=== PATIENT | male | born 1990 | race African-American/Black ===

== ENCOUNTER 2016-07-18 14:18 | Emergency (ER) | payer OTHER ==
[2016-07-18 14:47] VITALS: BP 136/91; PULSE 84; TEMP 98; BMI 43.0
--- NOTE | 2016-07-18 16:32 | PDOC ---
History of Present Illness - General Chief Complaint: Vaginal Sxs Stated Complaint: SICK Time Seen by Provider: 07/18/16 16:31 History Source: Patient Exam Limitations: No Limitations - History of Present Illness Initial Comments: 07/18/16 17:10 My chief complaint: Vaginal discharge with itchiness History of present illness: Patient is a 26-year-old transgender individual with history of fwy-gkhcagx-ylsnbdati diabetes here today complaining of a yellowish to grayish discharge times one month with vaginal itchiness. Patient reports that he is sexually active is however would like to be treated prophylactically for sexually transmitted diseases. Patient denies any vaginal lesions. Patient has not taken Glucophage for approximately 4 months has not seen her turbo operator. Denies any urinary symptoms no dysuria, hematuria, frequency or urgency. Denies any abdominal or back pain. 07/18/16 17:19 Timing/Duration: getting worse Severity: mild Associated Symptoms: reports: other (vaginal discharge grayish yellowish ) Past History - Past Medical History Allergies/Adverse Reactions: Allergies Allergy/AdvReac Type Severity Reaction Status Date / Time No Known Allergies Allergy Verified 07/18/16 14:47 Home Medications: Ambulatory Orders Testosterone Cypionate [Testone Cik] 200 mg IM ASDIR 07/18/16 Diabetes: Yes - Psycho/Social/Smoking Cessation Hx Anxiety: No Suicidal Ideation: No Smoking History: Never smoked Have you smoked in the past 12 months: No Information on smoking cessation initiated: No Hx Alcohol Use: No Drug/Substance Use Hx: No Substance Use Type: None Review of Systems - Review of Systems Able to Perform ROS?: Yes Constitutional: No: Symptoms Reported HEENTM: No: Symptoms Reported Respiratory: No: Symptoms reported Cardiac (ROS): No: Symptoms Reported ABD/GI: No: Symptoms Reported : Yes: Discharge (yellowish hurley vaginal discharge for one month ), Other ( does not have a penis or testicles). No: Frequency, Flank Pain, Hematuria, Incontinence, Pain, Urgency *Physical Exam - Vital Signs Last Vital Signs Temp Pulse Resp BP Pulse Ox 98.0 F 84 18 136/91 100 07/18/16 14:43 07/18/16 14:43 07/18/16 14:43 07/18/16 14:43 07/18/16 14:43 - Physical Exam General Appearance: Yes: Appropriately Dressed Respiratory/Chest: positive: Lungs Clear, Normal Breath Sounds. negative: Chest Tender, Respiratory Distress Cardiovascular: positive: Regular Rhythm, Regular Rate, S1, S2 Gastrointestinal/Abdominal: positive: Normal Bowel Sounds, Soft. negative: Tender, Organomegaly, Distended, Guarding, Rebound, Tenderness, Hepatomegaly, Spleenomegaly Male Genitalia: positive: other (vulva no lesions or edema, cervix slightly friable cervical os closed, normal [place] b/l, no CMT, discharge grayish yellow, no adnexa tenderness, bartholin and scalene gland no edema or tendereness). negative: normal genitalia, normal prostate, testicular tenderness, testicular mass, epididymus tender, inguinal hernia, hernia, CVAT, hematuria Integumentary: positive: Normal Color Neurologic: positive: Alert, Responsive ED Treatment Course - LABORATORY CBC & Chemistry Diagram: 07/18/16 17:15 07/18/16 17:15 Medical Decision Making - Medical Decision Making 07/18/16 17:19 Patient is a 26-year-old transgender individual with history of non-insulin- dependent diabetes here today complaining of a yellowish to grayish discharge times one month with vaginal itchiness. Patient reports that he is sexually active is however would like to be treated prophylactically for sexually transmitted diseases. Patient denies any vaginal lesions. Patient has not taken Glucophage for approximately 4 months has not seen her turbo operator. Denies any urinary symptoms no dysuria, hematuria, frequency or urgency. Denies any abdominal or back pain. He has a menses at times, is on testosterone. Unprotected sex vaginal discharge PLAN: u/a urine C & S genital culture urine chlamydia/GC BMP cbc with diff RPR rocephin 250 mg IM now azithromycin 1 gm now 07/18/16 17:21 Laboratory Tests 07/18/16 07/18/16 16:30 16:30 Urine Color Straw Urine Appearance Clear Urine pH 5.0 Ur Specific [place] 1.032 Urine Protein 1+ H Urine Glucose (UA) 3+ H Urine Ketones Negative Urine Blood Negative Urine Nitrite Negative Urine Bilirubin Negative Urine Urobilinogen Negative Ur Leukocyte Esterase Negative Chlamydia Competition Pending 07/18/16 18:06 07/18/16 18:06 Laboratory Tests 07/18/16 07/18/16 07/18/16 16:30 17:15 17:15 WBC 9.3 RBC 6.41 H Hgb 14.3 Hct 44.7 MCV 69.8 L MCHC 32.0 RDW 18.8 H Plt Count 255 MPV 9.8 Neutrophils % 59.8 Lymphocytes % 32.8 Monocytes % 5.8 Eosinophils % 0.9 Basophils % 0.7 Sodium 137 Potassium 4.3 Chloride 101 Carbon Dioxide 25 Anion Gap 11 BUN 11 Creatinine 0.6 L Random Glucose 183 H Calcium 9.6 Urine Color Straw Urine Appearance Clear Urine pH 5.0 Ur Specific [place] 1.032 Urine Protein 1+ H Urine Glucose (UA) 3+ H Urine Ketones Negative Urine Blood Negative Urine Nitrite Negative Urine Bilirubin Negative Urine Urobilinogen Negative Ur Leukocyte Esterase Negative Urine RBC 4 Urine WBC 1 Ur Epithelial Cells Rare Urine Bacteria Rare Urine Mucus Rare 07/18/16 18:18 follow up with turbo operator *DC/Admit/Observation/Transfer Diagnosis at time of Disposition: Unprotected sex, Blood glucose elevated - Discharge Dispostion Disposition: HOME Condition at time of disposition: Stable - Referrals Referrals: Janae Stiles MD [Primary Care Provider] - - Patient Instructions Additional Instructions: Follow-up with your turbo operator as soon as possible for treatment of your diabetes Call lab For results of pending labs in 3 days Use condoms when having sexual relations Return to emergency room if symptoms worsen or new symptoms develop Patient voiced understanding of discharge instructions and all questions were answered
[2016-07-18 16:51] LABS: URINE APPEARANCE CLEAR; URINE BILIRUBIN NEGATIVE (NEGATIVE); URINE BLOOD NEGATIVE (NEGATIVE); URINE COLOR STRAW; URINE GLUCOSE (UA) 3+ (NEGATIVE); URINE KETONE NEGATIVE (NEGATIVE); URINE LEUK ESTERASE NEGATIVE (NEGATIVE); URINE NITRITE NEGATIVE (NEGATIVE); URINE UROBILINOGEN NEGATIVE E.U./dl (0.2-1.0)
[2016-07-18 16:52] LABS: URINE PROTEIN 1+ (NEGATIVE)
[2016-07-18 17:05] LABS: URINE BACTERIA RARE /hpf (NONE SEEN); URINE MUCUS RARE; URINE RBC 4 /hpf (0-3); URINE WBC 1 /hpf (3-5)
[2016-07-18] MEDS ORDERED: AZITHROMYCIN 1 GM PACKET PO ONE (17:21)
[2016-07-18 17:33] LABS: BASOPHIL 0.7 % (0-2.0); EOSINOPHIL 0.9 % (0-4.5); MCH 22.3 pg (25.7-33.7); MEAN CELL VOLUME 69.8 fl (80-96); MEAN PLT VOLUME 9.8 fl (7.5-11.1); NEUTROPHILS 59.8 % (42.8-82.8); PLATELET COUNT 255 K/MM3 (134-434); RDW 18.8 % (11.9-15.9); WHITE BLOOD COUNT 9.3 K/mm3 (4.0-10.0)
[2016-07-18] MEDS ORDERED: AZITHROMYCIN 1 GM PACKET ONE (17:47)
[2016-07-18 17:55] LABS: CALCIUM 9.6 mg/dL (8.5-10.1); CREATININE 0.6 mg/dL (0.7-1.3)
[2016-07-18 18:39] LABS: PLATELET ESTIMATE ADEQUATE (NORMAL)
[2016-07-18 18:40] LABS: HYPOCHROMIA 1+; MICROCYTOSIS 1+; OVALOCYTES 1+; POIKILOCYTOSIS 1+; POLYCHROMASIA 1+; TARGET CELLS 1+; TEAR DROP CELLS 1+
== END 2016-07-18 18:29 | disposition home or self-care (01) ==
LOC: JERFT 14:18 → SUPCPDRO 14:18 → JERFT 18:29
DX: E11.65 Type 2 diabetes mellitus with hyperglycemia (principal); Z79.84 Long term (current) use of oral hypoglycemic drugs; Z91.14 Patient's other noncompliance with medication regimen; F64.0 Transsexualism
CPT/HCPCS: 36415; 80048; 81003; 81015; 84703; 85025; 86593; 87070; 87086; 87186; 87205; 87491; 87591; 96372; 99281-25

== ENCOUNTER 2017-02-01 14:39 | Emergency (ER) | payer OTHER ==
[2017-02-01 14:57] VITALS: BP 144/94; PULSE 92; TEMP 97.8; BMI 43.2
--- NOTE | 2017-02-01 15:52 | PDOC ---
History of Present Illness - General Chief Complaint: Vaginal Sxs Stated Complaint: ASSESSMENT Time Seen by Provider: 02/01/17 14:51 History Source: Patient - History of Present Illness Timing/Duration: reports: other Past History - Past Medical History Allergies/Adverse Reactions: Allergies Allergy/AdvReac Type Severity Reaction Status Date / Time No Known Allergies Allergy Verified 02/01/17 14:41 Home Medications: Ambulatory Orders Testosterone Cypionate [Testone Cik] 200 mg IM ASDIR 07/18/16 Diabetes: Yes (niddm) - Suicide/Smoking/Psychosocial Hx Smoking History: Never smoked Have you smoked in the past 12 months: No Information on smoking cessation initiated: No Hx Alcohol Use: No Drug/Substance Use Hx: No Substance Use Type: None Review of Systems - Review of Systems Constitutional: No: Chills, Fever ABD/GI: No: Nausea, Vomiting, Abdominal cramping : No: Dysuria, Flank Pain, Hematuria, Lesions *Physical Exam - Vital Signs Last Vital Signs Temp Pulse Resp BP Pulse Ox 97.8 F 92 H 18 144/94 100 02/01/17 14:42 02/01/17 14:42 02/01/17 14:42 02/01/17 14:42 02/01/17 14:42 - Physical Exam General Appearance: Yes: Appropriately Dressed. No: Apparent Distress HEENT: positive: Normal Voice Neck: positive: Supple Respiratory/Chest: negative: Respiratory Distress Gastrointestinal/Abdominal: positive: Soft. 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 States discharge was initially hurley in color, but has since turned yellow and copious. Has some itching intermittently but no foul odor. Patient is sexually active with both men and women and admits to a new male partner recently who vaginally penetrated pt. No history of STDs See exam Vaginal discharge after recent unprotected sex -empirical tx -Cultures sent -dc to f/u on cx results -safe sex d/w pt 02/01/17 16:35 *DC/Admit/Observation/Transfer Diagnosis at time of Disposition: Unprotected sex - Discharge Dispostion Disposition: HOME Condition at time of disposition: Good - Referrals Referrals: Erin Contreras MD [Primary Care Provider] - - Patient Instructions Printed Discharge Instructions: DI for Vaginal Discharge Additional Instructions: Please call ED in 3 days for test results at [phone] Refrain from sexual activity until symptoms resolve and after that follow up with you PMD for retesting Please inform sexual partner so they can be tested/treated as well Please engage in protected sex to avoid STDs
[2017-02-01] MEDS ORDERED: AZITHROMYCIN 250 MG TABLET PO ONE (15:53)
[2017-02-01] MEDS ORDERED: AZITHROMYCIN 1 GM PACKET ONE (15:56)
[2017-02-01 16:07] LABS: URINE APPEARANCE CLOUDY; URINE BILIRUBIN NEGATIVE (NEGATIVE); URINE BLOOD 1+ (NEGATIVE); URINE COLOR YELLOW; URINE GLUCOSE (UA) 1+ (NEGATIVE); URINE KETONE TRACE (NEGATIVE); URINE NITRITE NEGATIVE (NEGATIVE); URINE UROBILINOGEN NEGATIVE mg/dL (0.2-1.0)
[2017-02-01 16:11] LABS: URINE LEUK ESTERASE 3+ (NEGATIVE); URINE PROTEIN 2+ (NEGATIVE)
[2017-02-01 16:13] LABS: URINE BACTERIA RARE /hpf (NONE SEEN); URINE MUCUS RARE; URINE RBC 46 /hpf (0-3); URINE WBC 253 /hpf (3-5)
--- NOTE | 2017-02-04 09:35 | PDOC ---
Patient Follow-up (Call Back) - Post ED Follow - Up Chief Complaint: Vaginal Sxs Condition at time of discharge: Good Disposition at time of original discharge: HOME Reason for Call Back: Abnwl. Microbiology (positive gonorrhoea spoke with pt he is aware of the lab findings.) - Disposition Rx Needed: No
== END 2017-02-01 16:17 | disposition home or self-care (01) ==
LOC: JERFT 14:39
DX: N89.8 Other specified noninflammatory disorders of vagina (principal); F64.0 Transsexualism
CPT/HCPCS: 36415; 81003; 81015; 84703; 87070; 87086; 87186; 87205; 87491; 87591; 99281-25